=== PATIENT | female | born 2000 | race Caucasian/White ===

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

== ENCOUNTER 2020-01-16 14:14 | Emergency (ER) | payer BC, OTHER ==
[2020-01-16 14:24] VITALS: TEMP 98.2; BMI 21.6
--- NOTE | 2020-01-16 14:24 | PDOC ---
Rapid Medical Evaluation Chief Complaint: Urinary Problem Time Seen by Provider: 01/16/20 14:22 Medical Evaluation: Allergies Allergy/AdvReac Type Severity Reaction Status Date / Time No Known Allergies Allergy Verified 10/14/17 17:58 01/16/20 14:23 Pt c/o: subjective fever, cough, lower abd pain, vomiting and dysuria, 13 weeks Pt on brief exam: vss, no cva tenderness pt ordered for: urine pt to proceed to the ED Discharge Disposition - Diagnosis Dysuria - Referrals - Patient Instructions - Post Discharge Activity
[2020-01-16 16:40] LABS: EPI CELLS >36 /HPF (0-5/HPF); HYALINE CASTS 19 /lpf (0-8); PH,URINE 6.5 (5.0-8.0); URINE APPEARANCE CLOUDY; URINE BACTERIA 8973 /hpf (NEGATIVE); URINE BILIRUBIN 1+ (NEGATIVE); URINE COLOR DK YELLOW; URINE GLUCOSE (UA) NEGATIVE (NEGATIVE); URINE KETONE 1+ (NEGATIVE); URINE LEUK ESTERASE NEGATIVE (NEGATIVE); URINE NITRITE NEGATIVE (NEGATIVE); URINE PROTEIN 1+ (NEGATIVE); URINE RBC 4 /hpf (0-4)
[2020-01-16] MEDS ORDERED: SODIUM CHLORIDE 1,000 ML IV STA (16:44)
[2020-01-16] MEDS ORDERED: METOCLOPRAMIDE HCL INJECTION 10 MG/2 ML VIAL IVPB ONE (16:44)
[2020-01-16] MEDS ORDERED: ACETAMINOPHEN 1000 MG/100 ML VIAL (NON FORMULARY) IVPB ONE (16:49)
[2020-01-16 17:43] LABS: URINE WBC 2 /hpf (0-5)
[2020-01-16 18:26] VITALS: BP 104/55; PULSE 93
--- NOTE | 2020-01-16 18:52 | PDOC ---
History of Present Illness - General Chief Complaint: Urinary Problem Stated Complaint: 13 WEEKS AK/VOMITING COUGH Time Seen by Provider: 01/16/20 14:22 History Source: Patient Exam Limitations: No Limitations Past History - Travel Traveled outside of the country in the last 30 days: No Close contact w/someone who was outside of country & ill: No - Past Medical History Allergies/Adverse Reactions: Allergies Allergy/AdvReac Type Severity Reaction Status Date / Time No Known Allergies Allergy Verified 01/16/20 14:24 Home Medications: Ambulatory Orders Cephalexin Monohydrate [Keflex -] 500 mg PO BID #14 capsule 01/16/20 COPD: No - Reproductive History Is Patient Now?: Yes - Immunization History Immunization Up to Date: Yes - Psycho Social/Smoking Cessation Hx Smoking History: Never smoked Information on smoking cessation initiated: No Hx Alcohol Use: No Drug/Substance Use Hx: No Substance Use Type: None Review of Systems - Review of Systems Able to Perform ROS?: Yes Comments:: 01/16/20 21:35 CONSTITUTIONAL: Absent: fever, chills, diaphoresis, generalized weakness, malaise, loss of appetite HEENT: Absent: rhinorrhea, nasal congestion, throat pain, throat swelling, difficulty swallowing, mouth swelling, ear pain, eye pain, visual Changes CARDIOVASCULAR: Absent: chest pain, loss of consciousness, palpitations, irregular heart rate, peripheral edema RESPIRATORY: Absent: cough, shortness of breath, dyspnea with exertion, orthopnea, wheezing, stridor, hemoptysis GASTROINTESTINAL: Present: Abdominal pain, nausea and vomiting. Absent: abdominal pain, abdominal distension, nausea, vomiting, diarrhea, constipation, melena, hematochezia GENITOURINARY: Absent: dysuria, frequency, urgency, hesitancy, hematuria, flank pain, genital pain MUSCULOSKELETAL: Absent: myalgia, arthralgia, joint swelling SKIN: Absent: rash, itching, pallor HEMATOLOGIC/IMMUNOLOGIC: Absent: easy bleeding, easy bruising, lymphadenopathy, frequent infections ENDOCRINE: Absent: unexplained weight gain, unexplained weight loss, heat intolerance, cold intolerance NEUROLOGIC: Absent: headache, focal weakness or paresthesias, dizziness, unsteady gait, seizure, mental status changes, bladder or bowel incontinence PSYCHIATRIC: Absent: anxiety, depression, suicidal or homicidal ideation, hallucinations. Is the patient limited Spanish proficient: No *Physical Exam - Vital Signs Last Vital Signs Temp Pulse Resp BP Pulse Ox 98.2 F 93 H 18 104/55 L 100 01/16/20 14:22 01/16/20 18:25 01/16/20 14:22 01/16/20 18:25 01/16/20 18:25 - Physical Exam 01/16/20 21:35 GENERAL: Well developed, well nourished. Awake and alert. No acute distress. HEENT: Normocephalic, atraumatic. PERRLA, EOMI. No conjunctival pallor. Sclera are non- icteric. Moist mucous membranes. Oropharynx is clear. NECK: Supple. Full ROM. No lymphadenopathy. CARDIOVASCULAR: Regular rate and rhythm. No murmurs, rubs, or gallops. Distal pulses are 2+ and symmetric. PULMONARY: No evidence of respiratory distress. Lungs clear to auscultation bilaterally. No wheezing, rales or rhonchi. ABDOMINAL: Soft. Non-tender. Non-distended. No rebound or guarding. No organomegaly. Nor moactive bowel sounds. MUSCULOSKELETAL Normal range of motion at all joints. No bony deformities or tenderness. No CVA tenderness. EXTREMITIES: No cyanosis. No clubbing. No edema. No calf tenderness. SKIN: Warm and dry. Normal capillary refill. No rashes. No jaundice. NEUROLOGICAL: Alert, awake, appropriate. Cranial nerves 2-12 intact. No deficits to light touch and temperature in face, upper extremities and lower extremities. No motor deficits in the in face, upper extremities and lower extremities. Normoreflexic in the upper and lower extremities. Normal speech. Toes are down-going domo aterally. Gait is normal without ataxia. PSYCHIATRIC: Cooperative. Good eye contact. Appropriate mood and affect. ED Treatment Course - LABORATORY CBC & Chemistry Diagram: 01/16/20 18:30 01/16/20 18:30 - ADDITIONAL ORDERS Additional order review: Laboratory Results 01/16/20 15:45 Urine Color Dk yellow Urine Appearance Cloudy Urine pH 6.5 Ur Specific Kiefer 1.025 Urine Protein 1+ H Urine Glucose (UA) Negative Urine Ketones 1+ H Urine Blood Negative Urine Nitrite Negative Urine Bilirubin 1+ H Urine Urobilinogen 2.0 H Ur Leukocyte Esterase Negative Urine WBC (Auto) 2 Urine RBC (Auto) 4 Urine Casts (Auto) 19 U Pathogenic Cast Auto Ultrasound Technician U Epithel Cells (Auto) >36 Urine Bacteria (Auto) 8973 - RADIOLOGY Radiology Studies Ordered: Category Date Time Status US(SINGLE) [US] Stat Ultrasound 01/16/20 16:51 Ordered Medical Decision Making - Medical Decision Making 01/16/20 21:36 The patient is a 19-year-old female, G1, P0 currently 13 weeks , presents to the emergency department for 1 week of nausea, vomiting and abdominal pain. She states that she has been having trouble keeping food and fluids down. She was referred to the ER by her RECREATION THERAPY AIDES TEACHER for further evaluation. She denies fevers, chills, cough, sore throat, diarrhea, constipation, shortness of breath and difficulty breathing, vaginal bleeding and urinary discomfort. A/P: Vomiting On exam abdomen soft nontender without rebound guarding or tenderness. Fluids given, patient reports feeling better. Lab work shows elevated liver enzymes as well as proteinuria. No pedal edema noted on exam, platelets within normal limits, blood pressure 100/70. Ultrasound shows heart rate of 165, 13 weeks and 2 days. Given elevated liver enzymes and proteinuria will consult patient's RECREATION THERAPY AIDES TEACHER for further evaluation. 01/16/20 22:[address] Humphreys, elevated liver enzymes and proteinuria could be due to dehydration given vomiting. However he will have the patient follow-up as an outpatient for further repeat testing. Instructed patient to drink lots of fluids. Advised patient to the abdominal pain come back or if she develops fevers to return immediately to the ER for further evaluation. Patient understands all discharge instructions and will follow-up with Dr. Humphreys Monday. I discussed the physical exam findings, ancillary test results and final diagnoses with the patient. I answered all of the patient's questions. The [facility] ient was satisfied with the care received and felt comfortable with the discharge plan and treatment plan. The Patient agrees to follow up with the primary care physician/specialist within 24-72 hours. Return precautions were given. Discharge - Discharge Information Problems reviewed: Yes Clinical Impression/Diagnosis: Dysuria, Early stage of , Vomiting Condition: Stable Disposition: HOME - Admission No - Follow up/Referral Referrals: Osmany Coyle MD [Primary Care Provider] - Kelton Beverly MD [Staff Physician] - - Patient Discharge Instructions Additional Instructions: Your evaluated today for your urinary discomfort, abdominal pain. You have a urinary tract infection based on your lab work. Your lab work also showed that you have elevated liver enzymes and protein in your urine. This could be due to dehydration however it needs close follow-up with your RECREATION THERAPY AIDES TEACHER. Please keep your appointment with Dr. Humphreys for Monday as scheduled Take the Keflex as directed for 1 week. Drink plenty of fluids. Return to the ER immediately for fever, vaginal bleeding, worsening abdominal pain, vomiting or if you have any changes in your symptoms. - Post Discharge Activity Work/Back to School Note: Back to Work
[2020-01-16 19:16] LABS: BASO % 0.6 % (0-2.0); EOS % 0.3 % (0-4.5); HEMATOCRIT 39.3 % (32.4-45.2); HEMOGLOBIN 13.7 GM/dL (10.7-15.3); LYMPH % 47.8 % (8-40); MCH 30.7 pg (25.7-33.7); MCHC 34.9 g/dl (32.0-36.0); NEUT % 39.3 % (42.8-82.8); PLATELET COUNT 182 K/MM3 (134-434); RBC 4.47 M/mm3 (3.60-5.2); RDW 13.3 % (11.6-15.6); WHITE BLOOD COUNT 10.5 K/mm3 (4.0-10.0)
[2020-01-16 19:44] LABS: ALBUMIN 3.9 g/dl (3.4-5.0); BILIRUBIN,TOTAL 0.4 mg/dL (0.2-1); CALCIUM 9.1 mg/dL (8.5-10.1); CREATININE 0.6 mg/dL (0.55-1.3); POTASSIUM 3.6 mmol/L (3.5-5.1); TOT PROT 7.4 g/dl (6.4-8.2)
[2020-01-16 19:53] LABS: ANISOCYTOSIS 1+; MACROCYTOSIS 1+
[2020-01-16 19:56] LABS: PLATELET ESTIMATE ADEQUATE
== END 2020-01-16 22:00 | disposition home or self-care (01) ==
LOC: JER 14:14
PROC: 3E0337Z Introduction of Electrolytic and Water Balance Substance into Peripheral Vein, Percutaneous Approach (ICD-10-PCS; principal; 2020-01-16)
DX: O26.891 Other specified pregnancy related conditions, first trimester (principal); O23.41 Unspecified infection of urinary tract in pregnancy, first trimester; R74.8 Abnormal levels of other serum enzymes; O12.11 Gestational proteinuria, first trimester; Z3A.13 13 weeks gestation of pregnancy
CPT/HCPCS: 36415; 76801-TC; 80053; 81003; 85025; 87086; 87804; 99284-25; J7030

== ENCOUNTER 2020-07-23 11:55 | Inpatient (IN) | payer BC, OTHER ==
[2020-07-23 14:12] VITALS: BMI 29.5
[2020-07-23 14:41] LABS: BASO % 0.6 % (0-2.0); HEMATOCRIT 34.7 % (32.4-45.2); HEMOGLOBIN 12.1 GM/dL (10.7-15.3); LYMPH % 14.5 % (8-40); MCH 30.6 pg (25.7-33.7); MCHC 34.7 g/dl (32.0-36.0); MEAN CELL VOLUME 88.3 fl (80-96); MEAN PLT VOLUME 9.1 fl (7.5-11.1); MONO % 9.6 % (3.8-10.2); NEUT % 74.3 % (42.8-82.8); PLATELET COUNT 224 K/MM3 (134-434); RBC 3.94 M/mm3 (3.60-5.2); RDW 12.7 % (11.6-15.6); WHITE BLOOD COUNT 10.1 K/mm3 (4.0-10.0)
[2020-07-23 14:52] LABS: INR 0.93 (0.83-1.09)
[2020-07-23 14:55] LABS: ACTIVATED PTT 23.4 SECONDS (25.2-36.5)
[2020-07-23 15:11] LABS: BLOOD UREA NITROGEN 7.9 mg/dL (7-18); CALCIUM 8.6 mg/dL (8.5-10.1); CREATININE 0.6 mg/dL (0.55-1.3); POTASSIUM 3.6 mmol/L (3.5-5.1)
--- NOTE | 2020-07-23 16:06 | PN ---
Progress Note (short form) - Note Progress Note: cx clp, vx -3 mr, clear , nitrazine positive, irregular occasional contraction, not felt by patient cervidil vx expectant management discussed , agreed to have cervidil . risks discussed
--- NOTE | 2020-07-23 16:11 | HP ---
Past Medical History - Primary Care Physician PCP:: Kelton Beverly - Admission Chief Complaint: 40.3 weeks, PROM History of Present Illness: 20 yo f g 1p0 40.3 weeks c/o leakage of fluid since 12 noon today, clear, no pain, no fever , cx clp , vx -3 mr, fhr cat 1 History Source: Patient Limitations to Obtaining History: No Limitations - Past Medical History ...: 1 ...Para: 0 ...LMP: 10/14/49 ... Weeks Gestation by Dates: 40.3 ...EDC by Dates: 07/20/20 ...EDC by Sono: 07/22/20 Infectious Disease: Yes: Other (hx Dewey during ) - Past Surgical History Past Surgical History: Yes: None Hx Myomectomy: No Hx Transabdominal Cerclage: No - Smoking History Smoking history: Never smoked Have you smoked in the past 12 months: No - Alcohol/Substance Use Hx Alcohol Use: No History of Substance Use: reports: None - Social History ADL: Independent Occupation: Student History of Recent Travel: No Home Medications - Allergies Allergies/Adverse Reactions: Allergies Allergy/AdvReac Type Severity Reaction Status Date / Time No Known Allergies Allergy Verified 05/12/20 15:58 - Home Medications Home Medications: Ambulatory Orders Vitamins (Sjr) - 1 tab PO DAILY 05/12/20 Review of Systems - Review of Systems Constitutional: reports: No Symptoms Eyes: reports: No Symptoms HENT: reports: No Symptoms Neck: reports: No Symptoms Cardiovascular: reports: No Symptoms Respiratory: reports: No Symptoms Gastrointestinal: reports: No Symptoms Genitourinary: reports: No Symptoms Breasts: reports: No Symptoms Reported Musculoskeletal: reports: No Symptoms Integumentary: reports: No Symptoms Neurological: reports: No Symptoms Endocrine: reports: No Symptoms Hematology/Lymphatic: reports: No Symptoms Psychiatric: reports: No Symptoms Physical Exam - Maternity Vital Signs: Vital Signs Temperature 98.1 F 07/23/20 14:00 Pulse Rate 81 07/23/20 14:00 Respiratory Rate 07/23/20 14:00 Blood Pressure 105/54 L 07/23/20 14:00 O2 Sat by Pulse Oximetry (%) Constitutional: Yes: Well Nourished, No Distress, Calm Eyes: Yes: WNL, Conjunctiva Clear, EOM Intact HENT: Yes: WNL, Atraumatic, Normocephalic Neck: Yes: WNL, Supple, Trachea Midline Cardiovascular: Yes: WNL, Regular Rate and Rhythm Breast(s): Yes: WNL - Abdominal Exam/OB Fundal Height: 40 Number of Fetuses: Single Presentation: Vertex Contractions: No Intensity: Unaware Heart Rate Location: [facility] Category: I Accelerations: Non-Uniform Decelerations: None - Vaginal Exam/OB Vaginal Bleeding: No Speculum Exam: No Dilatation (cm): closed Amniotic Membrane Status: Ruptured Nitrazine Test: Positive Presentation: Vertex/Position Station: -3 - Physical Exam Musculoskeletal: Yes: WNL Extremities: Yes: WNL Edema: Yes Edema: LLE: Trace, RLE: Trace Deep Tendon Reflex Grade: Normal +2 Psychiatric: Yes: WNL - Labs Lab Results: CBC, BMP 07/23/20 14:21 07/23/20 14:21 Hemorrhage Risk Assessment - Risk Factors Medium Risk Factors: Yes: None High Risk Factors: Yes: None Risk Score: 1 Risk Level: Medium Risk Problem List - Problems (1) Post-dates Code(s): O48.0 - POST-TERM (2) PROM (premature rupture of membranes) Code(s): O42.90 - KULWINDER ROM, 7TH0 BETW RUPT & ONST LABR, UNSP WEEKS OF GEST Qualifiers: PROM onset of labor timing: unspecified duration between rupture of membranes and onset of labor PROM gestational age: -third trimester Qualified Code(s): O42.913 - premature rupture of membranes, unspecified as to length of time between rupture and onset of labor, third trimester Assessment/Plan admit GBS negative expectant management vs cervidil discussed agreedo have cervidil, risks explained to patient,
[2020-07-23] MEDS ORDERED: DINOPROSTONE 10 MG VAGINAL SUPPOSITORY VG ONE (16:18)
[2020-07-23] MEDS ORDERED: BUTORPHANOL TARTRATE 2 MG/ML VIAL IVPUSH ONE (16:19)
[2020-07-23] MEDS ORDERED: PROMETHAZINE HCL 25 MG/1 ML VIAL IVPUSH ONE (16:19)
[2020-07-23] MEDS: DEXTROSE 5%-LACTATED RINGERS 1,000 ML IV SCH (17:39)
[2020-07-23] MEDS ORDERED: BUTORPHANOL TARTRATE 1 MG/ML VIAL ONE ×2 (20:53)
[2020-07-23] MEDS ORDERED: PROMETHAZINE HCL 25 MG/1 ML VIAL ONE (20:53)
[2020-07-23] MEDS ORDERED: FENTANYL/BUPIVACAINE/NS/PF - PCEA - 50 ML DISP.SYRIN EP ONE (23:05)
[2020-07-23] MEDS ORDERED: PCA PUMP NR ONE (23:05)
--- NOTE | 2020-07-23 23:08 | PN ---
Progress Note (short form) - Note Progress Note: cx 3 cm 70 vx -3 mr, fhr cat 1, regular contraction, cervidil pulled in lower vagina Problem List - Problems (1) Post-dates Code(s): O48.0 - POST-TERM (2) PROM (premature rupture of membranes) Code(s): O42.90 - KULWINDER ROM, 7TH0 BETW RUPT & ONST LABR, UNSP WEEKS OF GEST Qualifiers: PROM onset of labor timing: unspecified duration between rupture of membranes and onset of labor PROM gestational age: -third trimester Qualified Code(s): O42.913 - premature rupture of membranes, unspecified as to length of time between rupture and onset of labor, third trimester
[2020-07-23] MEDS ORDERED: ELECTROLYTE-148 SOLN 1,000 ML IV SCH (23:15)
[2020-07-23] MEDS ORDERED: NALOXONE HCL 0.4 MG/ML VIAL IVPUSH PRN (23:16)
[2020-07-23] MEDS ORDERED: LIDO 2%/EPI 1:200000 PRESRVFRE (20 ML SDVIAL) ONE (23:18)
[2020-07-23] MEDS: FENTANYL/BUPIVACAINE/NS/PF - PCEA - 50 ML DISP.SYRIN EP SCH (23:30)
[2020-07-24] MEDS ORDERED: BUPIVACAINE HCL/PF 0.5% (5 MG/ML) 30 ML VIAL IJ ONE ×2 (00:12→06:46)
[2020-07-24] MEDS ORDERED: AMPICILLIN - 2 GM in SODIUM CHLORIDE 100 ML IVPB ONE (01:30)
[2020-07-24] MEDS ORDERED: AMPICILLIN SODIUM 2 GM VIAL ONE (01:42)
[2020-07-24] MEDS ORDERED: FENTANYL/BUPIVACAINE/NS/PF - PCEA - 50 ML DISP.SYRIN EP ONE ×2 (02:19→05:00)
[2020-07-24] MEDS: AMPICILLIN - 1 GM in SODIUM CHLORIDE 100 ML IVPB SCH ×2 (05:30→10:27)
[2020-07-24] MEDS ORDERED: AMPICILLIN SODIUM 1 GM VIAL ONE (05:44)
[2020-07-24] MEDS ORDERED: OXYTOCIN 20 UNITS in 0.9% NS 20 UNIT/1,000 ML INFUS.BAG IV ONE ×2 (07:42→11:08)
[2020-07-24] MEDS ORDERED: LIDOCAINE HCL 1% PRESERVATIVE FREE - 30ML VIAL ONE (07:43)
[2020-07-24] MEDS ORDERED: OXYTOCIN 30 UNITS in 0.9% NS 30 UNIT/500 ML INFUS.BAG IVPB ONE (07:43)
--- NOTE | 2020-07-24 08:00 | PN ---
Progress Note (short form) - Note Progress Note: cx fully dilated , vx +! mr , fhr cat 1 Problem List - Problems (1) Post-dates Code(s): O48.0 - POST-TERM (2) PROM (premature rupture of membranes) Code(s): O42.90 - KULWINDER ROM, 7TH0 BETW RUPT & ONST LABR, UNSP WEEKS OF GEST Qualifiers: PROM onset of labor timing: unspecified duration between rupture of membranes and onset of labor PROM gestational age: -third trimester Qualified Code(s): O42.913 - premature rupture of membranes, unspecified as to length of time between rupture and onset of labor, third trimester
[2020-07-24 08:30] LABS: POC NITRAZINE POS
[2020-07-24] MEDS ORDERED: BISACODYL 10 MG SUPP.RECT RC PRN (09:44)
[2020-07-24] MEDS ORDERED: BENZOCAINE 20% 57 GM BOTTLE TP PRN (09:44)
[2020-07-24] MEDS ORDERED: METHYLERGONOVINE MALEATE 0.2 MG/1 ML AMP IM PRN (09:44)
[2020-07-24] MEDS ORDERED: BENZOCAINE 28 GM HEMORRHOIDAL OINTMENT TP PRN (09:44)
[2020-07-24] MEDS ORDERED: WITCH HAZEL 50% (TUCKS) 40 PAD/JAR PAD TP PRN (09:44)
[2020-07-24] MEDS ORDERED: METHYLERGONOVINE MALEATE 0.2 MG/1 ML AMP IM ONE (09:46)
[2020-07-24 09:48] LABS: CORD BASE EXCESS -6.5 mmol/L (0-2); CORD HCO3 18.5 mmHg (20-29); CORD PCO2 35.7 mmHg (30-78); CORD pH 7.332 (7.14-7.44)
[2020-07-24 09:50] LABS: CORD BASE EXCESS -6.4 mmol/L (0-2); CORD HCO3 21.9 mmHg (20-29); CORD PCO2 53.6 mmHg (30-78); CORD pH 7.229 (7.14-7.44)
[2020-07-24 10:23] LABS: BASO % 0.3 % (0-2.0); EOS % 0.1 % (0-4.5); HEMATOCRIT 27.2 % (32.4-45.2); HEMOGLOBIN 9.3 GM/dL (10.7-15.3); LYMPH % 6.3 % (8-40); MCH 30.5 pg (25.7-33.7); MCHC 34.2 g/dl (32.0-36.0); MEAN CELL VOLUME 89.1 fl (80-96); MEAN PLT VOLUME 9.2 fl (7.5-11.1); MONO % 12.3 % (3.8-10.2); PLATELET COUNT 222 K/MM3 (134-434); RBC 3.05 M/mm3 (3.60-5.2); RDW 12.8 % (11.6-15.6); WHITE BLOOD COUNT 16.3 K/mm3 (4.0-10.0)
[2020-07-24] MEDS: PRENATAL VITAMINS W/ FOLIC ACID TABLET (FP) PO SCH (10:28)
[2020-07-24] MEDS: FERROUS SO4 325 MG TABLET (FP) PO SCH ×2 (10:28→17:43)
[2020-07-24] MEDS ORDERED: ONDANSETRON 4 MG/2 ML VIAL IVPB ONE (11:06)
--- NOTE | 2020-07-24 11:27 | PN ---
Progress Note (short form) - Note Progress Note: Pt with vomiting. She is s/p complicated by PPH. Exam showed normal lochia, w/o excessive bleeding. The uterus is firm. Plan Zofran IV x 1.
--- NOTE | 2020-07-24 14:50 | PN ---
Delivery - Delivery Vaginal Delivery: Spontaneous (cx full, head on pernium , median episiotomy done, head delivered nasopharynx suctioned, ant. and post shoulder with no difficulty . live baby girl 9/9. placenta complete , , uterine atony noted , iv pitocin drip, methergine im twice 10 min. apart given , uterine atony continued , cytotec 1000mcg insreted in rectum , uterine contraction obtained , uterus explored, no laceration or retained POC . median episiotomy in 3 layers with 2 chromic , rectal exam negative , ebl 1000cc, patient felt weak and hypotensive, iv fluid increased , bp normal, advised 2 units prbc.) Type of Anesthesia: Epidural Episiotomy/Laceration: Midline EBL (cc): 1,000 Delivery, Single - Stages of Labor Date 1st Stage Initiatied: 07/24/20 Time 1st Stage Initiated: 21:05 Date 2nd Stage Initiated: 07/24/20 Time 2nd Stage Initiated: 07:30 Date of Delivery: 07/24/20 Time of Delivery: 08:43 Time Placenta Delivered: 08:45 - Condition of Infant Wrapper Off/Sales Management Trainee Present: No Infant Gender: Female Weight: 8 lb 14 oz Position: Left, OA Total Hours ROM (Hrs/Mins): 23hrs/15Mins - 1 Minute Total Score: 9 5 Minutes Total Score: 9 - Feeding Plan Initial Plan: Elected not to breastfeed exclusively throughout hospitalization
[2020-07-24] MEDS: ACETAMINOPHEN 325 MG TABLET (FP) PO PRN ×2 (15:26→22:02)
[2020-07-24] MEDS: IBUPROFEN 600 MG TABLET (FP) PO PRN ×2 (15:27→22:03)
[2020-07-24] MEDS ORDERED: METHYLERGONOVINE MALEATE 0.2 MG TABLET (FP) PO PRN (16:09)
[2020-07-24] MEDS: MISOPROSTOL 100 MCG TABLET NR SCH ×2 (17:42→22:17)
[2020-07-24 19:22] LABS: BASO % 0.2 % (0-2.0); EOS % 0.1 % (0-4.5); HEMATOCRIT 27.1 % (32.4-45.2); HEMOGLOBIN 9.4 GM/dL (10.7-15.3); LYMPH % 8.6 % (8-40); MCH 30.7 pg (25.7-33.7); MCHC 34.5 g/dl (32.0-36.0); MEAN CELL VOLUME 88.8 fl (80-96); MEAN PLT VOLUME 9.1 fl (7.5-11.1); NEUT % 80.1 % (42.8-82.8); PLATELET COUNT 216 K/MM3 (134-434); RBC 3.05 M/mm3 (3.60-5.2); RDW 12.7 % (11.6-15.6); WHITE BLOOD COUNT 19.3 K/mm3 (4.0-10.0)
[2020-07-25] MEDS: FENTANYL/BUPIVACAINE/NS/PF - PCEA - 50 ML DISP.SYRIN EP SCH (08:16)
[2020-07-25 08:49] LABS: BASO % 0.4 % (0-2.0); EOS % 0.9 % (0-4.5); HEMATOCRIT 22.7 % (32.4-45.2); LYMPH % 15.8 % (8-40); MCHC 35.1 g/dl (32.0-36.0); MEAN CELL VOLUME 88.3 fl (80-96); MEAN PLT VOLUME 8.8 fl (7.5-11.1); MONO % 8.5 % (3.8-10.2); NEUT % 74.4 % (42.8-82.8); PLATELET COUNT 177 K/MM3 (134-434); RBC 2.57 M/mm3 (3.60-5.2); RDW 12.9 % (11.6-15.6)
[2020-07-25] MEDS: IBUPROFEN 600 MG TABLET (FP) PO PRN ×3 (08:51→20:22)
[2020-07-25] MEDS: FERROUS SO4 325 MG TABLET (FP) PO SCH ×2 (08:51→17:05)
[2020-07-25] MEDS: ACETAMINOPHEN 325 MG TABLET (FP) PO PRN ×3 (08:52→20:21)
[2020-07-25] MEDS: PRENATAL VITAMINS W/ FOLIC ACID TABLET (FP) PO SCH (09:40)
[2020-07-25] MEDS: SODIUM CHLORIDE 1,000 ML IV SCH ×2 (14:06→21:46)
[2020-07-25] MEDS: OXYTOCIN 20 UNITS in 0.9% NS 20 UNIT/1,000 ML INFUS.BAG IV SCH ×2 (18:50→21:46)
[2020-07-25] MEDS: DEXTROSE 5%-LACTATED RINGERS 1,000 ML IV SCH ×2 (18:50→21:47)
[2020-07-25] MEDS: MISOPROSTOL 100 MCG TABLET NR SCH (21:47)
[2020-07-25] MEDS: AMPICILLIN - 1 GM in SODIUM CHLORIDE 100 ML IVPB SCH (21:49)
[2020-07-25] MEDS ORDERED: SENNOSIDES/DOCUSATE COMBO (SENNA PLUS) TABLET (UD) PO PRN (22:00)
[2020-07-26] MEDS: ACETAMINOPHEN 325 MG TABLET (FP) PO PRN (08:41)
[2020-07-26] MEDS: IBUPROFEN 600 MG TABLET (FP) PO PRN (08:41)
[2020-07-26] MEDS: FERROUS SO4 325 MG TABLET (FP) PO SCH (08:41)
[2020-07-26] MEDS: PRENATAL VITAMINS W/ FOLIC ACID TABLET (FP) PO SCH (10:07)
--- NOTE | 2020-07-26 10:59 | DS ---
Physical Exam-TRAFFIC ADMINISTRATOR Vital Signs: Vital Signs Temperature 97.3 F L 07/25/20 22:00 Pulse Rate 106 H 07/25/20 22:00 Respiratory Rate 18 07/25/20 22:00 Blood Pressure 109/70 07/25/20 22:00 O2 Sat by Pulse Oximetry (%) 100 07/24/20 12:45 Constitutional: Yes: Well Nourished, No Distress, Calm Eyes: Yes: WNL, Conjunctiva Clear, EOM Intact HENT: Yes: WNL, Atraumatic, Normocephalic Neck: Yes: WNL, Supple, Trachea Midline Cardiovascular: Yes: WNL, Regular Rate and Rhythm Respiratory: Yes: WNL, Regular, CTA Bilaterally Gastrointestinal: Yes: WNL, Normal Bowel Sounds, Soft ...Rectal Exam: Yes: Deferred Renal/: Yes: WNL, Vaginal Bleeding (scant lochia) External Genitalia: Yes: Normal Internal Exam Deferred: Yes ....Post : Yes: Uterus firm, Uterus non-tender, Slight lochia rubra Breast(s): Yes: WNL Musculoskeletal: Yes: WNL Extremities: Yes: WNL Edema: LLE: Trace, RLE: Trace Integumentary: Yes: WNL Neurological: Yes: WNL, Alert, Oriented ...Motor Strength: WNL Psychiatric: Yes: WNL, Alert, Oriented Labs: CBC, BMP 07/25/20 07:31 07/23/20 14:21 Delivery - Delivery Vaginal Delivery: Spontaneous (cx full, head on pernium , median episiotomy done, head delivered nasopharynx suctioned, ant. and post shoulder with no difficulty . live baby girl 9/9. placenta complete , , uterine atony noted , iv pitocin drip, methergine im twice 10 min. apart given , uterine atony continued , cytotec 1000mcg insreted in rectum , uterine contraction obtained , uterus explored, no laceration or retained POC . median episiotomy in 3 layers with 2 chromic , rectal exam negative , ebl 1000cc, patient felt weak and hypotensive, iv fluid increased , bp normal, advised 2 units prbc.) Type of Anesthesia: Epidural Episiotomy/Laceration: Midline EBL (cc): 1,000 Delivery, Single - Stages of Labor Date 1st Stage Initiatied: 07/24/20 Time 1st Stage Initiated: 21:05 Date 2nd Stage Initiated: 07/24/20 Time 2nd Stage Initiated: 07:30 Date of Delivery: 07/24/20 Time of Delivery: 08:43 Time Placenta Delivered: 08:45 Placenta: Yes: Spontaneous, Normal Configuration - Condition of Infant Tester Regulator/Credit Assistant Present: No Gender: Female Weight: 4.026 kg Position: Left, OA Total Hours ROM (Hrs/Mins): 23hrs/15Mins - 1 Minute Total Score: 9 5 Minutes Total Score: 9 - [place] Feeding Plan Initial Plan: Elected not to breastfeed exclusively throughout hospitalization Benefits of Exclusively reinforced: Yes Discharge Summary Problems reviewed: Yes Reason For Visit: LABOR ADMISSION Current Active Problems PROM (premature rupture of membranes) (Acute) Post-dates (Acute) Procedures: Principal: [facility] Hospital Course: Immediate hemorrhage. Pt received 1u PRBC transfusion, uterotonics Health Concerns: Acute anemia due to blood loss Goals: Improving anemia Condition: Good - Instructions Diet, Activity, Other Instructions: Physical activity Resume your normal everyday activity as tolerated no heavy lifting or exercise until seen by your surgeon. You may walk unlimited delbert of and climb stairs. You may resume driving the car when you feel safe and comfortable behind the wheel. No sexual activity as instructed. Wound care If you have a bandage, leave it on, and keep dry for 48-72 hours. After that time discard the outer bandage. If they are tapes on the skin under the out of b andage leave them in place. They will peel off in the next 7 to 10 days. Do Not Peel them off. You may shower the day after surgery. If there are tapes present on the skin, you may shower over them. Diet There are no dietary restrictions. Eat healthy, high-fiber foods. Drink 6 to 8 glasses of liquid each day. This will assist in keeping your bowels are regular. Pain management You may take Tylenol or acetaminophen or Ibuprofen (for example, Motrin, Advil etc.) from my pain prescription medication is ordered should be taken as prescribed for moderate to severe pain. Call MD for any of the following: Severe pain not relieved by medication Fever of 101 or higher Excessive bleeding or drainage on dressing Inability to urinate Referrals: Kelton Beverly MD [Staff Physician] - 1 Week Disposition: HOME - Home Medications Comprehensive Discharge Medication List: Ambulatory Orders Vitamins (Sjr) - 1 tab PO DAILY 05/12/20 Miscellaneous Medical Supply [Breast Pump, Electronic] 1 each NR ASDIR #1 unit 07/26/20 Prescription Drug Monitoring Program (I-STOP) results: I-STOP not reviewed
--- NOTE | 2020-07-26 11:06 | PN ---
Post Progress Note - Subjective Subjective: Patient without acute complaints. Asymptomatic for anemia. Reports tolerating oral intake without nausea or vomiting. Ambulating without dizziness. Denies fevers or chills. Pain well controlled with oral pain medication. Pumping/breast feeding without issue. Passing flatus. Post Day: 2 Type of Delivery: Vital Signs: Vital Signs Temperature 97.3 F L 07/25/20 22:00 Pulse Rate 106 H 07/25/20 22:00 Respiratory Rate 18 07/25/20 22:00 Blood Pressure 109/70 07/25/20 22:00 O2 Sat by Pulse Oximetry (%) 100 07/24/20 12:45 Breast Exam: Yes: Soft Uterus: Yes: Fundus Firm, Fundus below umbilicus, Non-tender Abdomen/GI: Yes: Abdomen soft, Passing flatus Lochia: Yes: Rubra Lochia, amount: Small Extremities: Yes: Calves non-tender Perineum: Yes: Intact Activity: Ambulating - Labs Labs: CBC WBC 12.0 K/mm3 (4.0-10.0) H 07/25/20 07:31 RBC 2.57 M/mm3 (3.60-5.2) L 07/25/20 07:31 Hgb 8.0 GM/dL (10.7-15.3) L 07/25/20 07:31 Hct 22.7 % (32.4-45.2) L D 07/25/20 07:31 MCV 88.3 fl (80-96) 07/25/20 07:31 MCH 31.0 pg (25.7-33.7) 07/25/20 07:31 MCHC 35.1 g/dl (32.0-36.0) 07/25/20 07:31 RDW 12.9 % (11.6-15.6) 07/25/20 07:31 Plt Count 177 K/MM3 (134-434) 07/25/20 07:31 MPV 8.8 fl (7.5-11.1) 07/25/20 07:31 Absolute Neuts (auto) 8.9 K/mm3 (1.5-8.0) H 07/25/20 07:31 Neutrophils % 74.4 % (42.8-82.8) 07/25/20 07:31 Lymphocytes % 15.8 % (8-40) D 07/25/20 07:31 Monocytes % 8.5 % (3.8-10.2) 07/25/20 07:31 Eosinophils % 0.9 % (0-4.5) D 07/25/20 07:31 Basophils % 0.4 % (0-2.0) 07/25/20 07:31 Nucleated RBC % 0 % (0-0) 07/25/20 07:31 Assessment/Plan 20yo P1 s/p , doing well stable, afebrile. Asymptomatic for anemia. S/sx's of anemia discussed. care instructions reviewed. Continue routine care. Ambulation encouraged Discharge instruction reviewed. F/u in office next week.
[2020-07-26 11:38] VITALS: BP 122/71; PULSE 94; TEMP 98.3
== END 2020-07-26 12:25 | disposition home or self-care (01) | DRG 806 ==
LOC: JDEL 11:55 → JLDR 13:30 → J3W 07-24 14:16
PROVIDERS: ADMIT Obstetrics & Gynecology; ATTEND Obstetrics & Gynecology
PROC: 3E0P7VZ Introduction of Hormone into Female Reproductive, Via Natural or Artificial Opening (ICD-10-PCS; 2020-07-23)
PROC: 10E0XZZ Delivery of Products of Conception, External Approach (ICD-10-PCS; principal; 2020-07-24)
PROC: 0W8NXZZ Division of Female Perineum, External Approach (ICD-10-PCS; 2020-07-24)
PROC: 30233N1 Transfusion of Nonautologous Red Blood Cells into Peripheral Vein, Percutaneous Approach (ICD-10-PCS; 2020-07-24)
DX: O48.0 Post-term pregnancy (principal); O72.1 Other immediate postpartum hemorrhage; Z37.0 Single live birth; D62 Acute posthemorrhagic anemia; Z3A.40 40 weeks gestation of pregnancy; O42.913 Preterm premature rupture of membranes, unspecified as to length of time between rupture and onset of labor, third trimester; O98.519 Other viral diseases complicating pregnancy, unspecified trimester; B27.90 Infectious mononucleosis, unspecified without complication; O90.81 Anemia of the puerperium
CPT/HCPCS: 36415; 36430; 36600; 59409; 80048; 82803; 83986-QW; 85025; 85610; 85730; 86780; 86850; 86900; 86901; 86922; 87389; P9058; U0003

== ENCOUNTER 2023-03-27 05:23 | Emergency (ER) | payer BC, OTHER ==
[2023-03-27 05:37] VITALS: BMI 23.5
[2023-03-27] MEDS ORDERED: PHENAZOPYRIDINE HCL 100 MG TABLET (FP) PO ONE (06:02)
[2023-03-27] MEDS ORDERED: ACETAMINOPHEN 500 MG TABLET (FP) PO ONE (06:03)
[2023-03-27] MEDS ORDERED: CEPHALEXIN MONOHYDRATE 500 MG CAPSULE (UD) PO ONE (06:03)
[2023-03-27] MEDS ORDERED: ACETAMINOPHEN 325 MG TABLET (FP) ONE (06:27)
[2023-03-27] MEDS ORDERED: CEPHALEXIN MONOHYDRATE 500 MG CAPSULE (UD) ONE (06:27)
[2023-03-27] MEDS ORDERED: PHENAZOPYRIDINE HCL 100 MG TABLET (FP) ONE (06:27)
[2023-03-27 06:33] VITALS: BP 102/56; PULSE 69; RESP 18; TEMP 97.7
[2023-03-27] MEDS ORDERED: ONDANSETRON *ODT* 4 MG TABLET SL ONE (06:37)
[2023-03-27] MEDS ORDERED: ONDANSETRON *ODT* 4 MG TABLET ONE (06:44)
[2023-03-27 06:57] LABS: HCG,QUALITATIVE URINE Negative
[2023-03-27 06:58] LABS: EPI CELLS >36 /uL (0-25.1); HYALINE CASTS 33 /uL (0-3.1); PH,URINE 5.5 (5.0-8.0); URINE APPEARANCE TURBID; URINE BACTERIA 1350 /uL (0-1359); URINE BILIRUBIN 1+ (NEGATIVE); URINE COLOR ORANGE; URINE GLUCOSE (UA) NEGATIVE (NEGATIVE); URINE KETONE NEGATIVE (NEGATIVE); URINE LEUK ESTERASE 2+ (NEGATIVE); URINE NITRITE NEGATIVE (NEGATIVE); URINE PROTEIN 3+ (NEGATIVE); URINE RBC 12083 /uL (0-23.9); URINE WBC 17498 /uL (0-25.8)
== END 2023-03-27 06:47 | disposition home or self-care (01) ==
LOC: JER 05:23
DX: R30.0 Dysuria (principal); R31.9 Hematuria, unspecified
CPT/HCPCS: 81003; 84703; 87086; 87186; 99283-25; Q0162

== ENCOUNTER 2023-09-09 01:03 | Observation (INO) | payer BC, OTHER ==
[2023-09-09 01:10] VITALS: BMI 22.8
[2023-09-09] MEDS ORDERED: ACETAMINOPHEN 1000 MG/100 ML BAG IVPB ONE ×2 (01:20→14:34)
[2023-09-09] MEDS ORDERED: SIMETHICONE 80 MG TAB.CHEW (FP) PO ONE (01:20)
[2023-09-09] MEDS ORDERED: SODIUM CHLORIDE 0.9% 500 ML INFUS.BAG IV ONE (01:20)
[2023-09-09] MEDS ORDERED: ONDANSETRON 4 MG/2 ML VIAL IVPUSH ONE (01:20)
[2023-09-09] MEDS ORDERED: ONDANSETRON 4 MG/2 ML VIAL ONE ×2 (01:32→13:28)
[2023-09-09] MEDS ORDERED: ACETAMINOPHEN INJECTION 100 ML IVPB ONE (01:34)
[2023-09-09] MEDS ORDERED: SIMETHICONE 80 MG TAB.CHEW (FP) ONE (01:44)
[2023-09-09 02:29] LABS: BASO % 0.3 % (0-2.0); EOS % 2.2 % (0-4.5); HEMOGLOBIN 13.6 GM/dL (10.7-15.3); LYMPH % 18.5 % (8-40); MCH 30.1 pg (25.7-33.7); MCHC 34.7 g/dl (32.0-36.0); MEAN CELL VOLUME 86.7 fl (80-96); MEAN PLT VOLUME 7.8 fl (7.5-11.1); MONO % 5.6 % (3.8-10.2); NEUT % 73.4 % (42.8-82.8); PLATELET COUNT 310 10^3/uL (134-434); WHITE BLOOD COUNT 13.3 K/mm3 (4.0-10.0)
[2023-09-09 02:30] LABS: PH,URINE 5.5 (5.0-8.0); URINE APPEARANCE CLEAR; URINE BILIRUBIN NEGATIVE (NEGATIVE); URINE COLOR YELLOW; URINE GLUCOSE (UA) NEGATIVE (NEGATIVE); URINE KETONE TRACE (NEGATIVE); URINE LEUK ESTERASE NEGATIVE (NEGATIVE); URINE NITRITE NEGATIVE (NEGATIVE); URINE PROTEIN NEGATIVE (NEGATIVE); URINE UROBILINOGEN 0.2 mg/dL (0.2-1.0)
[2023-09-09 02:34] LABS: POTASSIUM 4.8 mmol/L (3.5-5.1)
[2023-09-09 02:36] LABS: CALCIUM 8.7 mg/dL (8.5-10.1)
[2023-09-09 02:37] LABS: ALBUMIN 4.1 g/dl (3.4-5.0); BLOOD UREA NITROGEN 21.4 mg/dL (7-18); MAGNESIUM 2.1 mg/dL (1.8-2.4)
[2023-09-09 02:40] LABS: CREATININE 0.7 mg/dL (0.55-1.3)
[2023-09-09 02:41] LABS: BILIRUBIN,TOTAL 0.4 mg/dL (0.2-1); TOT PROT 7.3 g/dl (6.4-8.2)
[2023-09-09 02:43] LABS: INR 1.29 (0.83-1.09); PROTHROMBIN TIME (PATIENT) 14.9 SEC (9.7-13.0)
[2023-09-09 02:46] LABS: ACTIVATED PTT 29.3 SECONDS (25.2-36.5)
[2023-09-09] MEDS ORDERED: PIPERACILLIN/TAZOB 3.375 GM 3.375 GM/50 ML BAG IVPB ONE (05:19)
[2023-09-09] MEDS ORDERED: PIPERACILLIN/TAZOB 3.375 GM 3.375 GM in DEXTROSE 5%-WATER - 50 ML IVPB ONE (05:19)
[2023-09-09] MEDS ORDERED: ACETAMINOPHEN 1000 MG/100 ML BAG IVPB PRN (09:55)
[2023-09-09] MEDS ORDERED: ONDANSETRON 4 MG/2 ML VIAL IVPUSH PRN ×3 (09:55→14:34)
[2023-09-09] MEDS ORDERED: DEXTROSE 5%-0.45% SALINE 1,000 ML IV SCH (10:00)
[2023-09-09] MEDS ORDERED: ENOXAPARIN NA (PORCINE) 40 MG/0.4 ML DISP.SYRIN SQ SCH (10:00)
[2023-09-09] MEDS ORDERED: BUPIVACAINE HCL/PF 0.25% (2.5MG/ML) 10 ML VIAL ONE (12:18)
[2023-09-09] MEDS ORDERED: cefOXitin SODIUM 2 GM VIAL (RESTRICTED TO ID) IVPB ONE ×2 (12:18→13:26)
[2023-09-09] MEDS ORDERED: ENOXAPARIN NA (PORCINE) 40 MG/0.4 ML DISP.SYRIN SQ ONE (12:33)
[2023-09-09] MEDS ORDERED: SUCCINYLCHOLINE CHLORIDE 200 MG/10 ML SYRINGE ONE (12:45)
[2023-09-09] MEDS ORDERED: PROPOFOL 20 ML ONE (12:45)
[2023-09-09] MEDS ORDERED: PIPERACILLIN/TAZOB 3.375 GM 3.375 GM in DEXTROSE 5%-WATER - 50 ML IVPB SCH ×2 (12:45→18:00)
[2023-09-09] MEDS ORDERED: FENTANYL CITRATE/PF 50 MCG/ML VIAL ONE ×2 (12:45→13:58)
[2023-09-09] MEDS ORDERED: MIDAZOLAM HCL 2 MG/2 ML SINGLE DOSE VIAL ONE (12:46)
[2023-09-09] MEDS ORDERED: ROCURONIUM BROMIDE 50 MG/5 ML SYRINGE ONE ×2 (12:46→13:19)
[2023-09-09] MEDS ORDERED: LACTATED RINGERS SOLUTION 1,000 ML IV SCH ×2 (13:00→14:34)
[2023-09-09] MEDS ORDERED: DEXAMETHASONE SOD PHOSPHATE 4 MG/1 ML VIAL ONE (13:28)
[2023-09-09] MEDS ORDERED: BUPIVACAINE HCL/PF 2.5 MG/ML - 30 ML VIAL IJ ONE (13:47)
[2023-09-09] MEDS ORDERED: NEOSTIGMINE METHYLSULFATE 0.5 MG/1 ML - 10 ML MDV ONE (13:47)
[2023-09-09] MEDS ORDERED: KETOROLAC TROMETHAMINE 30 MG/1 ML VIAL ONE (13:58)
[2023-09-09] MEDS ORDERED: oxyCODONE HCL 5 MG TABLET PO PRN (14:34)
[2023-09-09] MEDS ORDERED: FLU VACCINE (FLULAVAL) PF 60 MCG/0.5 ML SYRINGE 2023-2024 IM ONE (17:00)
[2023-09-09] MEDS: oxyCODONE HCL 5 MG TABLET PO PRN ×2 (17:16→22:08)
[2023-09-09] MEDS ORDERED: IBUPROFEN 600 MG TABLET (FP) PO PRN (20:30)
[2023-09-09 22:02] VITALS: RESP 18
[2023-09-09] MEDS ORDERED: ACETAMINOPHEN 500 MG TABLET (FP) PO PRN (22:30)
[2023-09-10] MEDS: oxyCODONE HCL 5 MG TABLET PO PRN (02:05)
[2023-09-10 09:35] LABS: BASO % 0.2 % (0-2.0); EOS % 1.2 % (0-4.5); HEMATOCRIT 36.3 % (32.4-45.2); HEMOGLOBIN 12.3 GM/dL (10.7-15.3); MCH 30.2 pg (25.7-33.7); MCHC 33.8 g/dl (32.0-36.0); MEAN CELL VOLUME 89.4 fl (80-96); MEAN PLT VOLUME 8.1 fl (7.5-11.1); MONO % 4.1 % (3.8-10.2); NEUT % 75.5 % (42.8-82.8); PLATELET COUNT 270 10^3/uL (134-434); RBC 4.06 M/mm3 (3.60-5.2); RDW 13.2 % (11.6-15.6); WHITE BLOOD COUNT 8.2 K/mm3 (4.0-10.0)
[2023-09-10 09:43] LABS: POTASSIUM 3.8 mmol/L (3.5-5.1)
[2023-09-10 09:45] LABS: ALBUMIN 3.5 g/dl (3.4-5.0); CALCIUM 8.5 mg/dL (8.5-10.1)
[2023-09-10 09:46] LABS: ALBUMIN 3.6 g/dl (3.4-5.0); BLOOD UREA NITROGEN 6.4 mg/dL (7-18)
[2023-09-10 09:48] LABS: BILIRUBIN,DIRECT 0.2 mg/dL (0.0-0.2)
[2023-09-10 09:49] LABS: CREATININE 0.7 mg/dL (0.55-1.3)
[2023-09-10 09:50] LABS: BILIRUBIN,TOTAL 0.6 mg/dL (0.2-1); TOT PROT 6.5 g/dl (6.4-8.2)
[2023-09-10 09:51] LABS: BILIRUBIN,TOTAL 0.6 mg/dL (0.2-1); TOT PROT 6.6 g/dl (6.4-8.2)
[2023-09-10 10:39] VITALS: BP 100/54; PULSE 57; TEMP 98.1
== END 2023-09-10 12:00 | disposition home or self-care (01) ==
LOC: JER 01:03 → JERBED 05:23 → UNDOADMOB 05:23 → INTOOBSV 05:23 → JERBED 15:16 → J6S 15:16 → JERBED 09-10 10:29
PROVIDERS: ADMIT Internal Medicine; ATTEND Family Medicine
PROC: 3E03329 Introduction of Other Anti-infective into Peripheral Vein, Percutaneous Approach (ICD-10-PCS; 2023-09-09)
PROC: 3E0337Z Introduction of Electrolytic and Water Balance Substance into Peripheral Vein, Percutaneous Approach (ICD-10-PCS; 2023-09-09)
PROC: 3E023GC Introduction of Other Therapeutic Substance into Muscle, Percutaneous Approach (ICD-10-PCS; 2023-09-09)
PROC: 0DTJ4ZZ Resection of Appendix, Percutaneous Endoscopic Approach (ICD-10-PCS; 2023-09-09)
PROC: 3E033NZ Introduction of Analgesics, Hypnotics, Sedatives into Peripheral Vein, Percutaneous Approach (ICD-10-PCS; principal; 2023-09-09 12:00)
PROC: 3E023GC Introduction of Other Therapeutic Substance into Muscle, Percutaneous Approach (ICD-10-PCS; 2023-09-10)
DX: K35.80 Unspecified acute appendicitis (principal); Z29.89 Encounter for other specified prophylactic measures
CPT/HCPCS: 36415; 74177-TC; 80053; 80076; 81003; 83735; 84703; 85025; 85610; 85730; 86850; 86900; 86901; 87086; 88304-TC; 90686; 94760; 99285-25; G0378; Q9967